=== PATIENT | female | born 1960 | race Caucasian/White ===

== ENCOUNTER 2016-11-14 09:00 | Day surgery (SDC) | payer OTHER ==
[2016-11-13 13:23] VITALS: BMI 28.1
[2016-11-14 10:12] VITALS: TEMP 97.4
[2016-11-14 11:34] VITALS: BP 119/70; PULSE 59
--- NOTE | 2016-11-15 13:05 | PATH ---
Surgical Pathology Report Patient Name: JOAQUÍN RAMIREZ [facility]. Rec. #: [id number] /Age/Gender: 1960 (Age: 56) / F Account: [id number] Location: U-ENDOSCOPY Taken: 11/14/2016 Received: 11/14/2016 Reported: 11/15/2016 Physicians: Akin Mcmahon D.O. Specimen(s) Received A: BX ANTRAL EROSION B: BX ANGULARIS BODY Clinical History Abdominal pain Gastritis Final Diagnosis A. STOMACH, ANTRUM, EROSION, BIOPSY: GASTRIC ANTRAL MUCOSA WITH ACTIVE MODERATE TO MARKED CHRONIC GASTRITIS WITH FOCAL INTESTINAL METAPLASIA AND REACTIVE GASTROPATHY WITH FOCAL SURFACE EROSION. NEGATIVE FOR DYSPLASIA. IMMUNOSTAIN FOR H. PYLORI IS POSITIVE FOR ORGANISMS (MANY ORGANISMS). B. STOMACH, ANGULARIS AND BODY, BIOPSY: GASTRIC OXYNTIC AND FOCALLY ANTRAL MUCOSA WITH FOCALLY ACTIVE MODERATE CHRONIC GASTRITIS. IMMUNOSTAIN FOR H. PYLORI IS POSITIVE FOR ORGANISMS (MANY ORGANISMS). Electronically Signed Froy Braxton M.D. Gross Description A. Received in formalin, labeled "biopsy antral erosion" are 2 veloz, irregular portions of soft tissue averaging 0.3 cm in greatest dimension. The specimens are submitted in toto in one cassette. B. Received in formalin, labeled "angularis and body" are 3 veloz, irregular portions of soft tissue ranging from 0.2-0.4 cm in greatest dimension. The specimens are submitted in toto in one cassette. 11/14/201611/14/2016
== END 2016-11-14 11:30 | disposition home or self-care (01) ==
LOC: JASU-ENDO 09:00
PROVIDERS: ATTEND Internal Medicine Gastroenterology
PROC: 0DB68ZX Excision of Stomach, Via Natural or Artificial Opening Endoscopic, Diagnostic (ICD-10-PCS; principal; 2016-11-14 10:00)
DX: K29.70 Gastritis, unspecified, without bleeding (principal)
CPT/HCPCS: 88305-TC; 88342-TC

== ENCOUNTER 2016-11-21 08:09 | Day surgery (SDC) | payer OTHER ==
[2016-11-21] MEDS ORDERED: LIDOCAINE HCL/PF 2% SDV 5ML VIAL ONE (09:42)
[2016-11-21] MEDS ORDERED: PROPOFOL 20 ML ONE ×2 (09:42)
[2016-11-21 10:13] VITALS: TEMP 97.5
[2016-11-21] MEDS ORDERED: METOCLOPRAMIDE HCL INJECTION 10 MG/2 ML VIAL ONE (10:22)
[2016-11-21 11:22] VITALS: BP 106/70; PULSE 62
--- NOTE | 2016-11-22 12:36 | PATH ---
Surgical Pathology Report Patient Name: JOAQUÍN RAMIREZ [facility]. Rec. #: [id number] /Age/Gender: 1960 (Age: 56) / F Account: [id number] Location: [facility]-ENDOSCOPY Taken: 11/21/2016 Received: 11/21/2016 Reported: 11/22/2016 Physicians: Akin Mcmahon D.O. Specimen(s) Received A: POLYP RIGHT COLON B: BX POLYP RIGHT COLON C: BX POLYP TRANSVERSE D: BX POLYP RECTUM Clinical History Screening Colon polyps Final Diagnosis A. COLON, RIGHT, POLYP, POLYPECTOMY: HYPERPLASTIC-TYPE POLYP WITH FEATURES OF SESSILE SERRATED ADENOMA. B. COLON, RIGHT, POLYP, BIOPSY: TUBULAR ADENOMA. C. COLON, TRANSVERSE, POLYP, BIOPSY: FRAGMENTS OF TUBULAR ADENOMA. D. RECTUM, POLYP, BIOPSY: HYPERPLASTIC POLYP. Electronically Signed Froy Braxton M.D. Gross Description A. Received in formalin, labeled "polyp right colon" is a veloz, polypoid portion of soft tissue measuring 0.5 cm in greatest dimension. The specimen is submitted in toto in one cassette. B. Received in formalin, labeled "#2 polyp right colon" is a veloz, polypoid portion of soft tissue measuring 0.3 cm in greatest dimension. The specimen is submitted in toto in one cassette. C. Received in formalin, labeled "biopsy polyp transverse" are 2 veloz, irregular portions of soft tissue averaging 0.2 cm in greatest dimension. The specimens are submitted in toto in one cassette. D. Received in formalin, labeled "biopsy polyp rectum" is a veloz, irregular portion of soft tissue measuring 0.3 cm in greatest dimension. The specimen is submitted in toto in one cassette. DL/11/21/2016 saudi/11/21/2016
== END 2016-11-21 11:36 | disposition home or self-care (01) ==
LOC: JASU-ENDO 08:09
PROVIDERS: ATTEND Internal Medicine Gastroenterology
PROC: 0DBL8ZX Excision of Transverse Colon, Via Natural or Artificial Opening Endoscopic, Diagnostic (ICD-10-PCS; 2016-11-21)
PROC: 0DBF8ZX Excision of Right Large Intestine, Via Natural or Artificial Opening Endoscopic, Diagnostic (ICD-10-PCS; 2016-11-21)
PROC: 0DBP8ZX Excision of Rectum, Via Natural or Artificial Opening Endoscopic, Diagnostic (ICD-10-PCS; principal; 2016-11-21 09:00)
DX: Z12.11 Encounter for screening for malignant neoplasm of colon (principal); D12.3 Benign neoplasm of transverse colon; K63.5 Polyp of colon; K62.1 Rectal polyp; K64.8 Other hemorrhoids; K63.89 Other specified diseases of intestine
CPT/HCPCS: 88305-TC

== ENCOUNTER 2018-10-12 20:36 | Inpatient (IN) | payer OTHER ==
[2018-10-12 22:32] LABS: BASO % 0.3 % (0-2.0); EOS % 0.5 % (0-4.5); HEMATOCRIT 42.2 % (32.4-45.2); LYMPH % 13.2 % (8-40); MCH 29.8 pg (25.7-33.7); MCHC 33.2 g/dl (32.0-36.0); MEAN CELL VOLUME 89.6 fl (80-96); MEAN PLT VOLUME 11.5 fl (7.5-11.1); MONO % 6.4 % (3.8-10.2); NEUT % 79.6 % (42.8-82.8); PLATELET COUNT 163 K/MM3 (134-434); RBC 4.71 M/mm3 (3.60-5.2); RDW 13.9 % (11.6-15.6)
[2018-10-12] MEDS ORDERED: ONDANSETRON 4 MG/2 ML VIAL IVPUSH ONE (22:37)
[2018-10-12 22:58] LABS: ALBUMIN 4.4 g/dl (3.4-5.0); ALK PHOS 88 U/L (45-117); ANION GAP 8 MMOL/L (8-16); BILIRUBIN,TOTAL 0.7 mg/dL (0.2-1); BLOOD UREA NITROGEN 15 mg/dL (7-18); CALCIUM 9.4 mg/dL (8.5-10.1); CHLORIDE 103 mmol/L (98-107); CO2 27 mmol/L (21-32); CREATININE 0.7 mg/dL (0.55-1.3); GLUCOSE,RANDOM 117 mg/dL (74-106); POTASSIUM 3.9 mmol/L (3.5-5.1); SGOT/AST 127 U/L (15-37); SGPT/ALT 105 U/L (13-61); SODIUM 138 mmol/L (136-145); TOT PROT 8.1 g/dl (6.4-8.2)
[2018-10-12 23:00] LABS: INR 0.96 (0.83-1.09); PROTHROMBIN TIME (PATIENT) 11.3 SEC (9.7-13.0)
[2018-10-12 23:02] LABS: ACTIVATED PTT 31.8 SECONDS (25.2-36.5)
[2018-10-12] MEDS ORDERED: FAMOTIDINE 20 MG/50 ML IVPB 20 MG/50 ML MG IVPB ONE ×2 (23:17→23:21)
[2018-10-12] MEDS ORDERED: SODIUM CHLORIDE 1,000 ML IV STA (23:18)
[2018-10-12] MEDS ORDERED: ONDANSETRON 4 MG/2 ML VIAL ONE (23:20)
[2018-10-12 23:47] LABS: LIPASE 213 U/L (73-393)
[2018-10-13] MEDS ORDERED: ACETAMINOPHEN 1000 MG/100 ML VIAL (NON FORMULARY) IVPB ONE (00:35)
[2018-10-13] MEDS ORDERED: ACETAMINOPHEN INJECTION 100 ML IVPB ONE (00:40)
--- NOTE | 2018-10-13 01:12 | PDOC ---
Attending Attestation - HPI HPI: 10/13/18 01:18 The patient is a 58 year old female, with a significant past medical history of gallstones, who presents to the emergency department with, RUQ abdominal pain with associated nausea and vomiting. She denies recent fevers, chills, headache or dizziness. She denies recent diarrhea or constipation. She denies recent dysuria, frequency, urgency or hematuria. She denies recent chest pain or shortness of breath. Allergies: NKDA Primary Care Physician: Dr. Binh Jama <Nidia Bobby - Last Filed: 10/13/18 01:18> - Resident Resident Name: Amari Armenta - ED Attending Attestation I have performed the following: I have examined & evaluated the patient, The case was reviewed & discussed with the resident, I agree w/resident's findings & plan, Exceptions are as noted - Physicial Exam PE: 10/13/18 01:35 wnwd 58 y female p/w epigastric pain and nausea head ncat neck supple lungs cta b/l cvs [id number] abd +++epigastric tenderness no cva tenderness skin warm and dry neuro axox3,ambulatory psych appropraite - Medical Decision Making 10/13/18 01:39 labs reviewed , LFTs elevated imp cholecystitis/pt admitted 10/13/18 01:43 <Rosamaria Flores - Last Filed: 10/13/18 01:43> Attestations - Attestations 10/13/18 01:18 Documentation prepared by Nidia Bobby, acting as medical sonographer for Rosamaria Flores MD. <Nidia Bobby - Last Filed: 10/13/18 01:18>
--- NOTE | 2018-10-13 01:22 | PDOC ---
History of Present Illness - General Chief Complaint: Pain, Acute Stated Complaint: VOMITING STOMACH PAIN Time Seen by Provider: 10/12/18 21:53 History Source: Patient Exam Limitations: No Limitations - History of Present Illness Initial Comments: 10/13/18 01:13 58 yo female pmh of cholelithiasis presents to the ED with 3 weeks of worsening epigastric and right upper quadrant pain with new NB/NB vomiting today. Abdominal pain has progressively worsened with new N/V today (4 episodes). Pain described as sharp, non radiating, not related to food. Pt has known gall stones with recent imaging done but no surgery f/u. Denies F/C, back pain, CP, SOB Past History - Past Medical History Allergies/Adverse Reactions: Allergies Allergy/AdvReac Type Severity Reaction Status Date / Time No Known Allergies Allergy Verified 10/12/18 20:57 Home Medications: Ambulatory Orders NK [No Known Home Medication] 10/13/18 Anemia: No Asthma: No Cancer: No Cardiac Disorders: No CVA: No COPD: No CHF: No Dementia: No Diabetes: No GI Disorders: Yes (CONSTIPATION, Gallstones) Disorders: No HTN: No Hypercholesterolemia: No Liver Disease: No Seizures: No Thyroid Disease: No - Surgical History Abdominal Surgery: No Appendectomy: No Cardiac Surgery: No Cholecystectomy: No Lung Surgery: No Neurologic Surgery: No Orthopedic Surgery: Yes (RIGHT KNEE ARTHROSCOPY) - Immunization History Immunization Up to Date: Yes - Suicide/Smoking/Psychosocial Hx Smoking History: Never smoked Have you smoked in the past 12 months: No Number of Cigarettes Smoked Daily: 4 Information on smoking cessation initiated: No 'Breaking Loose' booklet given: 11/21/16 Hx Alcohol Use: No Drug/Substance Use Hx: No Substance Use Type: None Review of Systems - Review of Systems Constitutional: No: Chills, Fever Respiratory: No: Shortness of Breath Cardiac (ROS): No: Chest Pain ABD/GI: Yes: Nausea, Vomiting. No: Constipated, Diarrhea : No: Burning, Dysuria, Frequency, Flank Pain Musculoskeletal: No: Back Pain Integumentary: No: Change in Color Neurological: No: Headache, Numbness, Weakness *Physical Exam - Vital Signs Last Vital Signs Temp Pulse Resp BP Pulse Ox 97.4 F L 66 16 106/70 100 10/12/18 20:55 10/12/18 20:55 10/12/18 20:55 10/12/18 20:55 10/12/18 20:55 - Physical Exam General Appearance: Yes: Nourished, Appropriately Dressed, Mild Distress (pt appears to be uncomfortable sitting in bed) HEENT: positive: EOMI Neck: positive: Supple Respiratory/Chest: positive: Lungs Clear, Normal Breath Sounds. negative: Accessory Muscle Use, Rapid RR, Crackles, Wheezing Cardiovascular: positive: Regular Rhythm, Regular Rate, S1, S2. negative: Edema , JVD, Murmur Vascular Pulses: Dorsalis-Pedis (R): 4+, Doralis-Pedis (L): 4+ Gastrointestinal/Abdominal: positive: Flat, Soft, Tenderness (RUQ and epigastric , + murphys). negative: Pulsatile Mass, Distended, Guarding, Rebound Musculoskeletal: negative: CVA Tenderness Integumentary: positive: Normal Color, Dry, Warm. negative: Jaundice Neurologic: positive: Fully Oriented, Alert, Normal Mood/Affect, Normal Response Moderate Sedation - Procedure Monitoring Vital Signs: Procedure Monitoring Vital Signs Temperature 97.4 F L 10/12/18 20:55 Pulse Rate 66 10/12/18 20:55 Respiratory Rate 16 10/12/18 20:55 Blood Pressure 106/70 10/12/18 20:55 O2 Sat by Pulse Oximetry (%) 100 10/12/18 20:55 ED Treatment Course - LABORATORY CBC & Chemistry Diagram: 10/14/18 06:30 10/14/18 06:30 - ADDITIONAL ORDERS Additional order review: Laboratory Results 10/12/18 10/12/18 10/12/18 22:25 22:20 22:20 PT with INR INR PTT (Actin FS) Sodium 138 Potassium 3.9 Chloride 103 Carbon Dioxide 27 Anion Gap 8 BUN 15 Creatinine 0.7 Creat Clearance w eGFR > 60 Random Glucose 117 H Calcium 9.4 Total Bilirubin 0.7 AST 127 H ALT 105 H Alkaline Phosphatase 88 Creatine Kinase 149 Troponin I < 0.02 Total Protein 8.1 Albumin 4.4 Lipase 213 Blood Type Cancelled Cancelled Antibody Screen Cancelled Cancelled 10/12/18 22:20 PT with INR 11.30 INR 0.96 PTT (Actin FS) 31.8 Sodium Potassium Chloride Carbon Dioxide Anion Gap BUN Creatinine Creat Clearance w eGFR Random Glucose Calcium Total Bilirubin AST ALT Alkaline Phosphatase Creatine Kinase Troponin I Total Protein Albumin Lipase Blood Type Antibody Screen 10/12/18 22:20 RBC 4.71 MCV 89.6 MCHC 33.2 RDW 13.9 MPV 11.5 H Neutrophils % 79.6 D Lymphocytes % 13.2 D Monocytes % 6.4 Eosinophils % 0.5 Basophils % 0.3 - RADIOLOGY Radiology Studies Ordered: Category Date Time Status ABDOMEN US -LIMITED [US] Stat Ultrasound 10/12/18 22:03 Completed - Medications Given in the ED: ED Medications Discontinued Medications Generic Name Dose Route Start Last Admin Trade Name Holly PRN Reason Stop Dose Admin Acetaminophen 1,000 mg 10/13/18 00:35 10/13/18 00:49 Ofirmev Injection - IVPB 10/13/18 00:36 1,000 mg ONCE ONE Administration Famotidine/Sodium Chloride 20 mg in 50 mls @ 100 mls/hr 10/12/18 23:17 23:35 Pepcid 20 Mg Premixed Ivpb - IVPB 10/12/18 23:46 100 mls/hr ONCE ONE Administration Sodium Chloride 1,000 mls @ 1,000 mls/hr 10/12/18 23:18 10/12/18 23:30 Normal Saline - IV 10/13/18 00:17 1,000 mls/hr ASDIR STA Administration Ondansetron HCl 4 mg 10/12/18 22:37 10/12/18 23:30 Zofran Injection IVPUSH 10/12/18 22:38 4 mg ONCE ONE Administration Medical Decision Making - Medical Decision Making 10/13/18 05:38 58 yo female pmh of known gall stones presents to the ED with 3 weeks of worsening RUQ abdominal pain and NB/NB vomiting today. Pt has known gall stones but no surgery assessment Vitals elevated HR otherwise WNL (temp normal) IV tylenol given with improvement of pain and vital signs DDX INLT: cholecysitis, cholangitis, pancreatitis/pancreatic ca, ulcer, nephrolithiasis/pylo, hepatitis/cirrhosis CBC shows leukocytosis CMP shows elevated LFTs RUQ US shows gall stones with gall bladder wall thickening and potential cholecystitis. Discussed all results with pt along with likely diagnosis of cholecystisis causing her constant pain. Pt would rather be admitted to have gall bladder removed rather than have it removed electively due to unbearable pain and new vomiting Dr. Fernando surgery consult placed Discussed case with hospitalist team, agree to admit pt *DC/Admit/Observation/Transfer Diagnosis at time of Disposition: Cholelithiases - Discharge Dispostion Condition at time of disposition: Improved Decision to Admit order: Yes - Referrals - Patient Instructions - Post Discharge Activity
--- NOTE | 2018-10-13 01:26 | PN ---
Teaching Attending Note Name of Resident: Stephan Ham ATTENDING PHYSICIAN STATEMENT I saw and evaluated the patient. I reviewed the resident's note and discussed the case with the resident. I agree with the resident's findings and plan as documented. SUBJECTIVE: Seen and examined; please refer to resident note for further historical information. Briefly, this is a 58 y/o female presenting to the ER with a CC of abdominal pain; she has a history of gallstones and was seen in [address] Mixon when she was at [facility]. Has had several episodes of this over the past year. Per his consult at that time she had atypical presentation of GB dz and recommended OP EGD +/- colonoscopy and OP elective cholecystectomy as well as a low fat diet. She is afebrile but does have a white count today in the ER; she is found to have borderline GB wall thickening on US but no wall dilation. She is agreeable to surgical consultation. Will place on observation on Med Surg floor and obtain HIDA scan and consult sgy. OBJECTIVE: VS, labs, imaging reviewed NAD, AAO, resting comfortably in bed NC AT EOMI PERRLA RRR s1/2 no mgr Lungs CTAB, w/ sym exp Slightly tender with no distention and +BS CN2-12 wnl, no fnd Normal mood, appropriate behavior US shows cholelithiasis with distension and borderline wall thickness; notes that early cholecystitis may not be visible on US and stated that we can get FU imaging as clinically indicated. Diffuse hepatic steatosis, no biliary tract dilation. Labs with normal bili and lipase but slight transaminitis ASSESSMENT AND PLAN: Patient presents with abdominal pain; she has known gallstones and was supposed to get OP stanley 3 yrs ago but was lost to FU. She presents today with potential early cholecystitis with some transaminitis. 1) Potential Cholecystitis -Empiric abx with levaquin and flagyl -NPO, LR@100cc/hr, pain and nausea control -Consult Dr. Mixon; appreciate expert opinion -Further interventions per surgical team; HIDA pending. 2) Transaminitis -AST/ALT elevation with normal lipase, bili, alk phos. Likely related to #1; checking ggt, trending cmp, consider hepatitis C screening Ab as she fits in the indicated age range. 3) Hepatic Steatosis -On us; check lipid panel and monitor CMP. Consider HCV Ab screen 4) Hx Renal stones -Noted on prior imaging; appears to have passed FENA -LR@100 -PRN replete -NPO -As tolerated Full Code
[2018-10-13] MEDS ORDERED: ONDANSETRON 4 MG/2 ML VIAL IVPB PRN (01:36)
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
[2018-10-13] MEDS ORDERED: SODIUM CHLORIDE 1,000 ML IV SCH (01:45)
[2018-10-13] MEDS: LACTATED RINGERS SOLUTION 1,000 ML/1,000 ML INFUS.BAG IV SCH ×2 (03:05→08:14)
[2018-10-13] MEDS ORDERED: HEPARIN NA (PORCINE) 5,000 UNITS/ML 1ML VIAL SQ SCH (06:00)
[2018-10-13 07:29] VITALS: BMI 26.7
[2018-10-13 08:47] LABS: BASO % 0.6 % (0-2.0); EOS % 0.8 % (0-4.5); HEMATOCRIT 35.4 % (32.4-45.2); HEMOGLOBIN 11.8 GM/dL (10.7-15.3); LYMPH % 31.9 % (8-40); MCH 29.9 pg (25.7-33.7); MCHC 33.3 g/dl (32.0-36.0); MEAN CELL VOLUME 89.7 fl (80-96); MEAN PLT VOLUME 12.2 fl (7.5-11.1); MONO % 9.8 % (3.8-10.2); NEUT % 56.9 % (42.8-82.8); PLATELET COUNT 142 K/MM3 (134-434); RBC 3.94 M/mm3 (3.60-5.2); RDW 14.1 % (11.6-15.6); WHITE BLOOD COUNT 4.6 K/mm3 (4.0-10.0)
[2018-10-13 09:44] LABS: ALBUMIN 3.4 g/dl (3.4-5.0); ALK PHOS 96 U/L (45-117); AMYLASE 41 U/L (25-115); ANION GAP 4 MMOL/L (8-16); BLOOD UREA NITROGEN 9 mg/dL (7-18); CALCIUM 8.8 mg/dL (8.5-10.1); CHLORIDE 110 mmol/L (98-107); CO2 28 mmol/L (21-32); CREATININE 0.6 mg/dL (0.55-1.3); GLUCOSE,RANDOM 92 mg/dL (74-106); LIPASE 142 U/L (73-393); PHOSPHOROUS 2.9 mg/dL (2.5-4.9); POTASSIUM 4.5 mmol/L (3.5-5.1); SGOT/AST 1231 U/L (15-37); SGPT/ALT 997 U/L (13-61); SODIUM 143 mmol/L (136-145); TOT PROT 6.2 g/dl (6.4-8.2)
[2018-10-13] MEDS: ACETAMINOPHEN 1000 MG/100 ML VIAL (NON FORMULARY) IVPB PRN ×2 (10:03→16:03)
--- NOTE | 2018-10-13 10:46 | CON.GI ---
Consult Consult Specialty:: GI consult dictated - await mrcp c/w current management - Past Medical History Renal/: Yes: Renal Calculi (right non-obstructing) Rheumatology: Yes: Other (right shoulder pain, left flank pain) - Past Surgical History Past Surgical History: Yes: (x 3) - Alcohol/Substance Use Hx Alcohol Use: No - Smoking History Smoking history: Never smoked Have you smoked in the past 12 months: No Aproximately how many cigarettes per day: 4 Home Medications - Allergies Allergies/Adverse Reactions: Allergies Allergy/AdvReac Type Severity Reaction Status Date / Time No Known Allergies Allergy Verified 10/12/18 20:57 - Home Medications Home Medications: Ambulatory Orders NK [No Known Home Medication] 10/13/18 Physical Exam-GI Vital Signs: Vital Signs Temperature 98.4 F 10/13/18 09:00 Pulse Rate 56 L 10/13/18 09:00 Respiratory Rate 18 10/13/18 09:00 Blood Pressure 114/56 L 10/13/18 09:00 O2 Sat by Pulse Oximetry (%) 97 10/13/18 06:57 Labs: CBC, BMP 10/13/18 08:00 10/13/18 08:00 INR, PTT INR 0.96 (0.83-1.09) 10/12/18 22:20 Problem List - Problems (1) Cholelithiasis Code(s): K80.20 - CALCULUS OF GALLBLADDER W/O CHOLECYSTITIS W/O OBSTRUCTION
--- NOTE | 2018-10-13 13:31 | EKG ---
Test Reason : Blood Pressure : / mmHG Vent. Rate : 054 BPM Atrial Rate : 054 BPM P-R Int : 194 ms QRS Dur : 082 ms QT Int : 438 ms P-R-T Axes : 042 025 034 degrees QTc Int : 415 ms SINUS BRADYCARDIA LOW VOLTAGE QRS NONSPECIFIC T WAVE ABNORMALITY ABNORMAL ECG WHEN COMPARED WITH ECG OF 29-JUN-2016 20:16, NO SIGNIFICANT CHANGE WAS FOUND Confirmed by MD PRICILA, KATHY ([id number]) on 10/13/2018 1:31:02 PM Referred By: Confirmed By:KATHY MCNULTY MD
--- NOTE | 2018-10-13 13:44 | PN ---
Teaching Attending Note Name of Resident: Jayden Viveros ATTENDING PHYSICIAN STATEMENT I saw and evaluated the patient. I reviewed the resident's note and discussed the case with the resident. I agree with the resident's findings and plan as documented. SUBJECTIVE: No abd pain, no ZUNIGA , no fever or chills , has heart burn. report a diagnosis of cholelithiasis but never followed denies exertional cp or SOB. has no cardiac history OBJECTIVE: NAD awake, alert, oriented. dry MM Lungs: CTAB Ext : no edema or erythema Abd: soft, NT, ND , NL BS . Neg Hammond's ASSESSMENT AND PLAN: 58 y/o lady with h/o cholelithiasis, C section, and R shoulder sx who presented with Abd pain, and was found ot have Transaminitis 1- Transaminitis: need to r/o impacted CBD stone due to the abrupt rise in LFTs. - US reviewed. Gall bladder distention and borderline wall thickening. - dc HIDA - order MRCP - change levaquin to ceftriaxone. cont flagyl - cont IVF - NPO for now - might need ERCP. if MRCP showes CBD stone , then will get GI on board - DC DVT px in case ERCP is needed - d/w Dr. Fernando 2- GERD sx: add PPI SCDs
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
[2018-10-13] MEDS ORDERED: DEXTROSE 5%-WATER - 50 ML IVPB ONE (18:26)
[2018-10-13] MEDS ORDERED: PIPERACILLIN/TAZOBACTAM 3.375 GM VIAL IVPB ONE (18:26)
--- NOTE | 2018-10-13 18:28 | PN ---
Physical Exam: SUBJECTIVE: Patient seen and examined at bedside. Denies any abdominal pain. OBJECTIVE: Vital Signs Period Temp Pulse Resp BP Sys/Jones Pulse Ox Last 24 Hr 97.4 F-98.4 F 52-66 16-20 102-116/52-70 96-100 GENERAL: AAOx3 NAD HEAD: AT/NC EYES: EOMI Sclera clear no scleral icterus appreciated ENT: MMM NECK: Trachea midline, full range of motion, supple. LUNGS: CTAB HEART: RRR Nl s1s2 ABDOMEN: [place] sign negative. Nondistended nontender EXTREMITIES: No CCE PSYCH: Normal mood, normal affect. SKIN: Skin moist, no jaundice appreciated Laboratory Results - last 24 hr 10/12/18 10/12/18 10/12/18 22:20 22:20 22:20 WBC 13.0 H RBC 4.71 Hgb 14.0 Hct 42.2 MCV 89.6 MCH 29.8 MCHC 33.2 RDW 13.9 Plt Count 163 MPV 11.5 H Absolute Neuts (auto) 10.3 H Neutrophils % 79.6 D Lymphocytes % 13.2 D Monocytes % 6.4 Eosinophils % 0.5 Basophils % 0.3 Nucleated RBC % 0 ESR PT with INR 11.30 INR 0.96 PTT (Actin FS) 31.8 Sodium 138 Potassium 3.9 Chloride 103 Carbon Dioxide 27 Anion Gap 8 BUN 15 Creatinine 0.7 Creat Clearance w eGFR > 60 Random Glucose 117 H Calcium 9.4 Phosphorus Magnesium Total Bilirubin 0.7 GGT AST 127 H ALT 105 H Alkaline Phosphatase 88 Creatine Kinase 149 Troponin I < 0.02 Total Protein 8.1 Albumin 4.4 Total Amylase Lipase 213 Blood Type Antibody Screen 10/12/18 10/12/18 10/13/18 22:20 22:25 02:14 WBC RBC Hgb Hct MCV MCH MCHC RDW Plt Count MPV Absolute Neuts (auto) Neutrophils % Lymphocytes % Monocytes % Eosinophils % Basophils % Nucleated RBC % ESR 7 PT with INR INR PTT (Actin FS) Sodium Potassium Chloride Carbon Dioxide Anion Gap BUN Creatinine Creat Clearance w eGFR Random Glucose Calcium Phosphorus Magnesium Total Bilirubin GGT AST ALT Alkaline Phosphatase Creatine Kinase Troponin I Total Protein Albumin Total Amylase Lipase Blood Type Cancelled Cancelled Antibody Screen Cancelled Cancelled 10/13/18 10/13/18 10/13/18 02:14 08:00 08:00 WBC 4.6 RBC 3.94 Hgb 11.8 Hct 35.4 D MCV 89.7 MCH 29.9 MCHC 33.3 RDW 14.1 Plt Count 142 MPV 12.2 H Absolute Neuts (auto) 2.6 Neutrophils % 56.9 D Lymphocytes % 31.9 D Monocytes % 9.8 Eosinophils % 0.8 Basophils % 0.6 Nucleated RBC % 0 ESR PT with INR INR PTT (Actin FS) Sodium Potassium Chloride Carbon Dioxide Anion Gap BUN Creatinine Creat Clearance w eGFR Random Glucose Calcium Phosphorus Magnesium Total Bilirubin GGT 275 H AST ALT Alkaline Phosphatase Creatine Kinase Troponin I Total Protein Albumin Total Amylase Lipase Blood Type O POSITIVE Antibody Screen Negative 10/13/18 10/13/18 08:00 10:45 WBC RBC Hgb Hct MCV MCH MCHC RDW Plt Count MPV Absolute Neuts (auto) Neutrophils % Lymphocytes % Monocytes % Eosinophils % Basophils % Nucleated RBC % ESR PT with INR INR PTT (Actin FS) Sodium 143 Potassium 4.5 Chloride 110 H Carbon Dioxide 28 Anion Gap 4 L BUN 9 Creatinine 0.6 Creat Clearance w eGFR > 60 Random Glucose 92 Calcium 8.8 Phosphorus 2.9 Magnesium 2.0 Total Bilirubin 1.0 GGT AST 1231 H ALT 997 H Alkaline Phosphatase 96 Creatine Kinase Troponin I < 0.02 Total Protein 6.2 L Albumin 3.4 Total Amylase 41 Lipase 142 Blood Type O POSITIVE Antibody Screen Active Medications Generic Name Dose Route Start Last Admin Trade Name Freq PRN Reason Stop Dose Admin Acetaminophen 1,000 mg 10/13/18 02:11 10/13/18 16:03 Ofirmev Injection - IVPB 1,000 mg Q6H PRN Administration PAIN LEVEL 6-10 Lactated Ringer's 1,000 ml in 1,000 mls @ 100 mls/hr 10/13/18 02:15 10/13/18 08:14 Lactated Ringers Solution IV 100 mls/hr ASDIR VALORIE Administration Piperacillin Sod/Tazobactam 50 mls @ 100 mls/hr 10/13/18 18:30 Sod 3.375 gm/ Dextrose IVPB 10/13/18 18:59 ONCE ONE Protocol Ondansetron HCl 4 mg 10/13/18 01:36 Zofran Injection IVPB Q6H PRN NAUSEA AND/OR VOMITING ASSESSMENT/PLAN: Pt is a 58 year old female with no pMHx who presented with a one day h/o epigastric abdominal pain. # Cholelithisis R.O Acute cholecystitis - multiple episode through out the year worsen with fatty food -US abdomen with cholelithiasis. MRCP---> Cholelithiasis but not choledocholithiasis or pancreaticobilliary duct dilation. -Levofloxacin and flagyl -Surgery on board- Dr Fernando -NPO pending ERCP tomorrow -Type and screen . PTT, INT/PT -D5w w/ LR @ 100. Discussed with Surgery Dr Fernando -Tylenol IV for pain -Zofran for Nausea # Transaminitis -AST/ALT 127-1231. 105--> 997 respectively. wbc down to normal, alk phos is normal. Not clearly an obstructive pattern. May be 2/2 gallbladder injury -monitor repeat lab in am # Hepatic Steatosis -noted on US On us; check lipid panel and monitor CMP. -HCV Ab screen as out pt # FEN D5 w/ LR @ 100cc/hr # DVT ppx SCD's # Dispo Med-Surg Visit type - Emergency Visit Emergency Visit: Yes ED Registration Date: 10/13/18 Care time: The patient presented to the Emergency Department on the above date and was hospitalized for further evaluation of their emergent condition. - New Patient This patient is new to me today: Yes Date on this admission: 10/13/18 - Critical Care Critical Care patient: No - Discharge Referral Referred to [facility] No
[2018-10-13] MEDS ORDERED: PIPERACILLIN/TAZOB 3.375 GM 3.375 GM in DEXTROSE 5%-WATER - 50 ML IVPB ONE (18:30)
[2018-10-13] MEDS ORDERED: DEXTROSE 5%-LACTATED RINGERS 1,000 ML IV SCH ×2 (19:00)
[2018-10-13] MEDS ORDERED: OXYMETAZOLINE 0.05% NASAL SOLUTION 15 ML BOTTLE NS ONE (19:00)
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
[2018-10-14] MEDS ORDERED: BUPIVACAINE HCL/PF (5 MG/ML) 30 ML VIAL IJ ONE
[2018-10-14] MEDS ORDERED: DEXTROSE 5%-WATER - 50 ML IVPB ONE ×3 (00:47→18:17)
[2018-10-14] MEDS ORDERED: PIPERACILLIN/TAZOBACTAM 3.375 GM VIAL IVPB ONE ×3 (00:47→18:17)
[2018-10-14] MEDS: PIPERACILLIN/TAZOB 3.375 GM 3.375 GM in DEXTROSE 5%-WATER - 50 ML IVPB SCH ×3 (01:46→18:19)
[2018-10-14 07:35] LABS: EOS % 3.3 % (0-4.5); HEMATOCRIT 38.1 % (32.4-45.2); HEMOGLOBIN 12.8 GM/dL (10.7-15.3); LYMPH % 34.2 % (8-40); MCH 30.4 pg (25.7-33.7); MCHC 33.7 g/dl (32.0-36.0); MEAN CELL VOLUME 90.2 fl (80-96); MEAN PLT VOLUME 11.9 fl (7.5-11.1); MONO % 12.2 % (3.8-10.2); NEUT % 49.3 % (42.8-82.8); PLATELET COUNT 146 K/MM3 (134-434); RBC 4.22 M/mm3 (3.60-5.2); RDW 13.8 % (11.6-15.6); WHITE BLOOD COUNT 3.8 K/mm3 (4.0-10.0)
[2018-10-14 07:59] LABS: ALBUMIN 3.5 g/dl (3.4-5.0); ALK PHOS 100 U/L (45-117); ANION GAP 4 MMOL/L (8-16); BILIRUBIN,TOTAL 0.5 mg/dL (0.2-1); BLOOD UREA NITROGEN 7 mg/dL (7-18); CALCIUM 9.3 mg/dL (8.5-10.1); CHLORIDE 108 mmol/L (98-107); CHOLESTEROL 185 mg/dL (50-200); CO2 31 mmol/L (21-32); CREATININE 0.7 mg/dL (0.55-1.3); GLUCOSE,RANDOM 105 mg/dL (74-106); HDL CHOLESTEROL 66 mg/dL (40-60); LIPASE 111 U/L (73-393); MAGNESIUM 2.3 mg/dL (1.8-2.4); PHOSPHOROUS 3.2 mg/dL (2.5-4.9); POTASSIUM 4.2 mmol/L (3.5-5.1); SGOT/AST 290 U/L (15-37); SGPT/ALT 663 U/L (13-61); SODIUM 142 mmol/L (136-145); TOT PROT 6.5 g/dl (6.4-8.2); TRIGLYCERIDES 95 mg/dL (0-150)
--- NOTE | 2018-10-14 09:27 | PN ---
Teaching Attending Note Name of Resident: Gray Valadez ATTENDING PHYSICIAN STATEMENT I saw and evaluated the patient. I reviewed the resident's note and discussed the case with the resident. I agree with the resident's findings and plan as documented. SUBJECTIVE: Patient is going to OR today. OBJECTIVE: Vital Signs Temperature 98.2 F 10/14/18 05:59 Pulse Rate 51 L 10/14/18 05:59 Respiratory Rate 18 10/14/18 05:59 Blood Pressure 99/57 L 10/14/18 05:59 O2 Sat by Pulse Oximetry (%) 97 10/13/18 21:00 GENERAL: AAOx3 NAD HEAD: AT/NC EYES: EOMI Sclera clear no scleral icterus appreciated ENT: MMM NECK: full range of motion, supple. LUNGS: CTAB HEART: RRR Nl s1s2 ABDOMEN: soft, NT today . Nondistended nontender EXTREMITIES: No C/C/E PSYCH: Normal mood, normal affect. SKIN: Skin moist, no jaundice appreciated CBCD WBC 3.8 K/mm3 (4.0-10.0) L 10/14/18 06:30 RBC 4.22 M/mm3 (3.60-5.2) 10/14/18 06:30 Hgb 12.8 GM/dL (10.7-15.3) 10/14/18 06:30 Hct 38.1 % (32.4-45.2) 10/14/18 06:30 MCV 90.2 fl (80-96) 10/14/18 06:30 MCHC 33.7 g/dl (32.0-36.0) 10/14/18 06:30 RDW 13.8 % (11.6-15.6) 10/14/18 06:30 Plt Count 146 K/MM3 (134-434) 10/14/18 06:30 MPV 11.9 fl (7.5-11.1) H 10/14/18 06:30 CMP Sodium 142 mmol/L (136-145) 10/14/18 06:30 Potassium 4.2 mmol/L (3.5-5.1) 10/14/18 06:30 Chloride 108 mmol/L (98-107) H 10/14/18 06:30 Carbon Dioxide 31 mmol/L (21-32) 10/14/18 06:30 Anion Gap 4 MMOL/L (8-16) L 10/14/18 06:30 BUN 7 mg/dL (7-18) 10/14/18 06:30 Creatinine 0.7 mg/dL (0.55-1.3) 10/14/18 06:30 Creat Clearance w eGFR > 60 (>60) 10/14/18 06:30 Random Glucose 105 mg/dL (74-106) 10/14/18 06:30 Calcium 9.3 mg/dL (8.5-10.1) 10/14/18 06:30 Total Bilirubin 0.5 mg/dL (0.2-1) 10/14/18 06:30 AST 290 U/L (15-37) H 10/14/18 06:30 ALT 663 U/L (13-61) H 10/14/18 06:30 Alkaline Phosphatase 100 U/L (45-117) 10/14/18 06:30 Total Protein 6.5 g/dl (6.4-8.2) 10/14/18 06:30 Albumin 3.5 g/dl (3.4-5.0) 10/14/18 06:30 CARDIAC ENZYMES Creatine Kinase 149 U/L (26-192) 10/12/18 22:20 Troponin I < 0.02 ng/ml (0.00-0.05) 10/13/18 08:00 Current Medications Generic Name Dose Route Start Last Admin Trade Name Freq PRN Reason Stop Dose Admin Acetaminophen 1,000 mg 10/13/18 02:11 10/13/18 16:03 Ofirmev Injection - IVPB 1,000 mg Q6H PRN Administration PAIN LEVEL 6-10 Piperacillin Sod/Tazobactam 50 mls @ 100 mls/hr 10/14/18 02:00 10/14/18 01:46 Sod 3.375 gm/ Dextrose IVPB 100 mls/hr Q8H-IV VALORIE Administration Protocol Ondansetron HCl 4 mg 10/13/18 01:36 Zofran Injection IVPB Q6H PRN NAUSEA AND/OR VOMITING Pantoprazole Sodium 40 mg 10/14/18 10:00 Protonix Iv IVPUSH DAILY VALORIE Home Medications Medication Instructions Recorded NK [No Known Home Medication] 10/13/18 ASSESSMENT AND PLAN: Patient is a 58 y/o lady with h/o cholelithiasis, C section, and R shoulder sx who presented with Abd pain, and was found to have elevated LFts , acute cholecystitis. # Acute cholecystitis going for lap stanley. today by . On IV Zosyn continue. # acute Transaminitis:will trend # GERD sx: on PPI DVt Px; hold ac for now going to sx
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
[2018-10-14] MEDS ORDERED: CEFTRIAXONE 1 GM in DEXTROSE 5%-WATER - 50 ML IVPB SCH (10:00)
[2018-10-14] MEDS ORDERED: PANTOPRAZOLE SODIUM 40 MG VIAL IVPUSH SCH (10:00)
--- NOTE | 2018-10-14 11:15 | PN ---
Progress Note, Physician Chief Complaint: Elevated liver chemistry tests, abdominal pain History of Present Illness: Doing well since yesterday. No abdominal pain at present. Comfortable. - Current Medication List Current Medications: Active Medications Acetaminophen (Ofirmev Injection -) 1,000 mg IVPB Q6H PRN PRN Reason: PAIN LEVEL 6-10 Last Admin: 10/13/18 16:03 Dose: 1,000 mg Piperacillin Sod/Tazobactam (Sod 3.375 gm/ Dextrose) 50 mls @ 100 mls/hr IVPB Q8H-IV VALORIE; Protocol Last Admin: 10/14/18 09:54 Dose: 100 mls/hr Ondansetron HCl (Zofran Injection) 4 mg IVPB Q6H PRN PRN Reason: NAUSEA AND/OR VOMITING Pantoprazole Sodium (Protonix Iv) 40 mg IVPUSH DAILY VALORIE Last Admin: 10/14/18 09:54 Dose: 40 mg - Objective Vital Signs: Vital Signs Temperature 98.2 F 10/14/18 05:59 Pulse Rate 51 L 10/14/18 05:59 Respiratory Rate 18 10/14/18 05:59 Blood Pressure 99/57 L 10/14/18 05:59 O2 Sat by Pulse Oximetry (%) 97 10/13/18 21:00 Constitutional: Yes: Well Nourished, No Distress Eyes: No: Sclera Icterus Cardiovascular: Yes: Regular Rate and Rhythm Respiratory: Yes: CTA Bilaterally Labs: CBC, BMP 10/14/18 06:30 10/14/18 06:30 INR, PTT INR 0.96 (0.83-1.09) 10/12/18 22:20 - ....Imaging MRI: Report Reviewed (No choledochelithiasis or change to CBD, pancreatic duct) Problem List - Problems (1) Cholelithiasis Code(s): K80.20 - CALCULUS OF GALLBLADDER W/O CHOLECYSTITIS W/O OBSTRUCTION (2) Calculus of gallbladder with acute cholecystitis without obstruction Code(s): K80.00 - CALCULUS OF GALLBLADDER W ACUTE CHOLECYST W/O OBSTRUCTION Assessment/Plan With dramatic decrease in AST/ALT to 290/663 from 1231/997 yesterday, and continued normal bilirubin and alkaline phosphatase along with MRCP free of choledochelithiasis or changes to CBD or pancreatic duct, no immediate value to ERCP at this time--likely passed stone. Timing of GB surgery per surgical team. Will continue to follow with you.
--- NOTE | 2018-10-14 14:14 | PN ---
Physical Exam: SUBJECTIVE: Patient seen and examined at bedside. No acute events overnight. Denies abdominal pain. OBJECTIVE: Vital Signs Period Temp Pulse Resp BP Sys/Jones Pulse Ox Last 24 Hr 97.7 F-98.4 F 51-60 18-18 99-118/57-77 97 GENERAL: AAOx3 NAD HEAD: AT/NC EYES: EOMI Sclera clear no scleral icterus appreciated ENT: MMM NECK: Trachea midline, full range of motion, supple. LUNGS: Clear to auscultation b/l HEART: RRR Nl s1s2 ABDOMEN: [place] sign negative. Abdomen remains nondistended and nontender EXTREMITIES: No CCE PSYCH: Normal mood, normal affect. SKIN: Skin moist, no jaundice appreciated Laboratory Results - last 24 hr 10/14/18 10/14/18 10/14/18 06:30 06:30 06:30 WBC 3.8 L RBC 4.22 Hgb 12.8 Hct 38.1 MCV 90.2 MCH 30.4 MCHC 33.7 RDW 13.8 Plt Count 146 MPV 11.9 H Absolute Neuts (auto) 1.9 Neutrophils % 49.3 Lymphocytes % 34.2 Monocytes % 12.2 H Eosinophils % 3.3 D Basophils % 1.0 Nucleated RBC % 0 Sodium 142 Potassium 4.2 Chloride 108 H Carbon Dioxide 31 Anion Gap 4 L BUN 7 Creatinine 0.7 Creat Clearance w eGFR > 60 Random Glucose 105 Hemoglobin A1c % 5.9 Calcium 9.3 Phosphorus 3.2 Magnesium 2.3 Total Bilirubin 0.5 AST 290 H ALT 663 H Alkaline Phosphatase 100 Total Protein 6.5 Albumin 3.5 Triglycerides 95 Cholesterol 185 Total LDL Cholesterol 103 H HDL Cholesterol 66 H Lipase 111 Active Medications Generic Name Dose Route Start Last Admin Trade Name Freq PRN Reason Stop Dose Admin Acetaminophen 1,000 mg 10/13/18 02:11 10/13/18 16:03 Ofirmev Injection - IVPB 1,000 mg Q6H PRN Administration PAIN LEVEL 6-10 Fentanyl 25 mcg 10/14/18 14:08 Sublimaze Injection - IVPUSH [id number] PRN PAIN-PACU ORDER X 4 DOSES ONLY Piperacillin Sod/Tazobactam 50 mls @ 100 mls/hr 10/14/18 02:00 10/14/18 09:54 Sod 3.375 gm/ Dextrose IVPB 100 mls/hr Q8H-IV VALORIE Administration Protocol Ondansetron HCl 4 mg 10/13/18 01:36 Zofran Injection IVPB Q6H PRN NAUSEA AND/OR VOMITING Pantoprazole Sodium 40 mg 10/14/18 10:00 10/14/18 09:54 Protonix Iv IVPUSH 40 mg DAILY VALORIE Administration ASSESSMENT/PLAN: Pt is a 58 year old female with no pMHx who presented with a one day h/o epigastric abdominal pain. # Cholelithisis R.O Acute cholecystitis - multiple episode through out the year worsen with fatty food -US abdomen with cholelithiasis. MRCP---> Cholelithiasis but not choledocholithiasis or pancreaticobilliary duct dilation. -Zosyn 3.375 Q8H -Surgery on board- Dr Fernando -D5w w/ LR @ 100. Discussed with Surgery Dr Fernando -Tylenol IV for pain -Zofran for Nausea # Transaminitis -AST/ALT 127-1231. 105--> 997 respectively. wbc down to normal, alk phos is normal. Not clearly an obstructive pattern. May be 2/2 gallbladder injury -AST/ALT 290/663. Down from yesterday. Per Dr Karoline Brooke, continued normal bilirubin and alkaline phosphatase along with MRCP free of choledochelithiasis or changes to CBD or pancreatic duct, no immediate value to ERCP at this time-- likely passed stone. Spoke with Surgery Dr Fernando---. pt will go for cholecystectomy this afternoon # Hepatic Steatosis -noted on US On us; Triglycerides Total Cholesterol WNL. LDL 103 -HCV Ab screen as out pt # FEN D5 w/ LR @ 100cc/hr # DVT ppx SCD's # Dispo Med-Surg Visit type - Emergency Visit Emergency Visit: Yes ED Registration Date: 10/13/18 Care time: The patient presented to the Emergency Department on the above date and was hospitalized for further evaluation of their emergent condition. - New Patient This patient is new to me today: No - Critical Care Critical Care patient: No - Discharge Referral Referred to [facility] No
--- NOTE | 2018-10-14 14:45 | PN ---
Progress Note, Physician History of Present Illness: Pt with acute cholecystitis, multiple stones, MRCP negative for CBD stones. Labs trending down today. Feeling hungry with minimal pain. - Current Medication List Current Medications: Active Medications Acetaminophen (Ofirmev Injection -) 1,000 mg IVPB Q6H PRN PRN Reason: PAIN LEVEL 6-10 Last Admin: 10/13/18 16:03 Dose: 1,000 mg Fentanyl (Sublimaze Injection -) 25 mcg IVPUSH [id number] PRN PRN Reason: PAIN-PACU ORDER X 4 DOSES ONLY Stop: 10/15/18 14:07 Piperacillin Sod/Tazobactam (Sod 3.375 gm/ Dextrose) 50 mls @ 100 mls/hr IVPB Q8H-IV VALORIE; Protocol Last Admin: 10/14/18 09:54 Dose: 100 mls/hr Ondansetron HCl (Zofran Injection) 4 mg IVPB Q6H PRN PRN Reason: NAUSEA AND/OR VOMITING Pantoprazole Sodium (Protonix Iv) 40 mg IVPUSH DAILY VALORIE Last Admin: 10/14/18 09:54 Dose: 40 mg - Objective Vital Signs: Vital Signs Temperature 98.2 F 10/14/18 14:40 Pulse Rate 58 L 10/14/18 14:40 Respiratory Rate 18 10/14/18 14:40 Blood Pressure 118/77 10/14/18 14:40 O2 Sat by Pulse Oximetry (%) 97 10/13/18 21:00 Constitutional: Yes: Well Nourished, No Distress, Calm Eyes: Yes: Conjunctiva Clear, EOM Intact. No: Sclera Icterus HENT: Yes: Atraumatic, Normocephalic Gastrointestinal: Yes: Soft, Tenderness, Epigastrium (minimal). No: Tenderness , Rebound ...Rectal Exam: Yes: Deferred Extremities: No: Cool, Cyanosis Integumentary: No: Jaundice, Rash Neurological: Yes: Alert, Oriented Labs: CBC, BMP 10/14/18 06:30 10/14/18 06:30 CMP Sodium 142 mmol/L (136-145) 10/14/18 06:30 Potassium 4.2 mmol/L (3.5-5.1) 10/14/18 06:30 Chloride 108 mmol/L (98-107) H 10/14/18 06:30 Carbon Dioxide 31 mmol/L (21-32) 10/14/18 06:30 Anion Gap 4 MMOL/L (8-16) L 10/14/18 06:30 BUN 7 mg/dL (7-18) 10/14/18 06:30 Creatinine 0.7 mg/dL (0.55-1.3) 10/14/18 06:30 Creat Clearance w eGFR > 60 (>60) 10/14/18 06:30 Random Glucose 105 mg/dL (74-106) 10/14/18 06:30 Hemoglobin A1c % 5.9 % (4.2-6.3) 10/14/18 06:30 Calcium 9.3 mg/dL (8.5-10.1) 10/14/18 06:30 Phosphorus 3.2 mg/dL (2.5-4.9) 10/14/18 06:30 Magnesium 2.3 mg/dL (1.8-2.4) 10/14/18 06:30 Total Bilirubin 0.5 mg/dL (0.2-1) 10/14/18 06:30 GGT 275 U/L (5-85) H 10/13/18 02:14 AST 290 U/L (15-37) H 10/14/18 06:30 ALT 663 U/L (13-61) H 10/14/18 06:30 Alkaline Phosphatase 100 U/L (45-117) 10/14/18 06:30 Creatine Kinase 149 U/L (26-192) 10/12/18 22:20 Troponin I < 0.02 ng/ml (0.00-0.05) 10/13/18 08:00 Total Protein 6.5 g/dl (6.4-8.2) 10/14/18 06:30 Albumin 3.5 g/dl (3.4-5.0) 10/14/18 06:30 Triglycerides 95 mg/dL (0-150) 10/14/18 06:30 Cholesterol 185 mg/dL (50-200) 10/14/18 06:30 Total LDL Cholesterol 103 mg/dL (5-100) H 10/14/18 06:30 HDL Cholesterol 66 mg/dL (40-60) H 10/14/18 06:30 Total Amylase 41 U/L (25-115) 10/13/18 08:00 Lipase 111 U/L (73-393) 10/14/18 06:30 LFTs trending down Problem List - Problems (1) Calculus of gallbladder with acute cholecystitis without obstruction Assessment/Plan: no ERCP needed per GI Discussed with patient risks, benefits and alternatives of laparoscopic possible open cholecystectomy, including but not limited to bleeding, infection , injury to adjacent structures, bile leak or ductal injury, intraabdominal abscess, incisional hernia, need for further procedures, ; alternatives include antibiotics, delayed or no surgery - risks of this include recurrence of cholecystitis, cholangitis, pancreatitis, . Patient desires to proceed with operation - will take to OR for above. Informed consent signed for same. Stateless phone paraprofessional interpreter used. Will go to OR now. anticipate resuming po postop pain meds nonnarcotics first line complete antibiotics before d/c home possible d/c home tomorrow after lunch, after seen by surgery discussed with primary team Code(s): K80.00 - CALCULUS OF GALLBLADDER W ACUTE CHOLECYST W/O OBSTRUCTION (2) Epigastric pain Code(s): R10.13 - EPIGASTRIC PAIN (3) Nausea & vomiting Code(s): R11.2 - NAUSEA WITH VOMITING, UNSPECIFIED Qualifiers: Vomiting type: unspecified Vomiting Intractability: non-intractable Qualified Code(s): R11.2 - Nausea with vomiting, unspecified (4) Elevated transaminase level Assessment/Plan: trending down Code(s): R74.0 - NONSPEC ELEV OF LEVELS OF TRANSAMNS & LACTIC ACID DEHYDRGNSE
[2018-10-14] MEDS ORDERED: DEXAMETHASONE SOD PHOSPHATE 4 MG/1 ML VIAL ONE (14:48)
[2018-10-14] MEDS ORDERED: PROPOFOL 20 ML ONE (14:52)
[2018-10-14] MEDS ORDERED: ROCURONIUM BROMIDE 50 MG/5 ML VIAL ONE (14:53)
[2018-10-14] MEDS ORDERED: LIDOCAINE HCL/PF 2% SDV 5ML VIAL ONE (14:53)
[2018-10-14] MEDS ORDERED: GLYCOPYRROLATE 0.2 MG/1 ML VIAL ONE (15:58)
[2018-10-14] MEDS ORDERED: NEOSTIGMINE METHYLSULFATE 0.5 MG/ML - 10 ML MDV ONE (15:58)
[2018-10-14] MEDS ORDERED: BENZOIN TINCTURE SWABSTICK TP ONE (16:07)
--- NOTE | 2018-10-14 16:38 | OP ---
Operative Note - Note: Operative Date: 10/14/18 Pre-Operative Diagnosis: acute cholecystitis Operation: laparoscopic cholecystectomy Findings: distended, mildly edematous gallbladder, few overlying omental adhesions, critical view clearly identified, multiple stones palpated in gallbladder Post-Operative Diagnosis: Same as Pre-op Surgeon: Glenn Fernando Life Sciences Manager: Benny Pickering Anesthesiologist/DIRECTOR OF CORPORATE SPONSORSHIPS: Ronny Cavazos Anesthesia: General, Local (20ml 0.5% marcaine) Specimens Removed: gallbladder to pathology Estimated Blood Loss (mls): 5 Fluid Volume Replaced (mls): 1,000 (crystalloid) Operative Report Dictated: Yes
[2018-10-14] MEDS ORDERED: IBUPROFEN 800 MG/8 ML IJ IVPB ONE ×2 (16:55→17:00)
[2018-10-14] MEDS ORDERED: LACTATED RINGERS SOLUTION 1,000 ML/1,000 ML INFUS.BAG IV SCH (17:00)
[2018-10-14] MEDS: ACETAMINOPHEN 325 MG TABLET (FP) PO SCH ×2 (18:19→23:30)
[2018-10-14] MEDS: IBUPROFEN 600 MG TABLET (FP) PO SCH (20:39)
[2018-10-15] MEDS ORDERED: PIPERACILLIN/TAZOBACTAM 3.375 GM VIAL IVPB ONE ×2 (01:24→08:55)
[2018-10-15] MEDS ORDERED: DEXTROSE 5%-WATER - 50 ML IVPB ONE ×2 (01:24→08:55)
[2018-10-15] MEDS: PIPERACILLIN/TAZOB 3.375 GM 3.375 GM in DEXTROSE 5%-WATER - 50 ML IVPB SCH (02:39)
[2018-10-15] MEDS: IBUPROFEN 600 MG TABLET (FP) PO SCH ×4 (02:45→22:26)
[2018-10-15 04:13] LABS: HEP.C VIRUS AB <0.1 s/co ratio (0.0-0.9)
[2018-10-15] MEDS: ACETAMINOPHEN 325 MG TABLET (FP) PO SCH ×3 (05:16→18:20)
[2018-10-15 07:55] LABS: HEMATOCRIT 37.7 % (32.4-45.2); HEMOGLOBIN 12.4 GM/dL (10.7-15.3); MCH 29.5 pg (25.7-33.7); MCHC 32.8 g/dl (32.0-36.0); MEAN CELL VOLUME 89.7 fl (80-96); MEAN PLT VOLUME 12.2 fl (7.5-11.1); PLATELET COUNT 151 K/MM3 (134-434); RDW 13.8 % (11.6-15.6); WHITE BLOOD COUNT 9.1 K/mm3 (4.0-10.0)
[2018-10-15 08:16] LABS: ALBUMIN 3.4 g/dl (3.4-5.0); ALK PHOS 91 U/L (45-117); ANION GAP 6 MMOL/L (8-16); BILIRUBIN,DIRECT 0.2 mg/dL (0.0-0.2); BILIRUBIN,TOTAL 0.5 mg/dL (0.2-1); BLOOD UREA NITROGEN 7 mg/dL (7-18); CALCIUM 9.9 mg/dL (8.5-10.1); CHLORIDE 106 mmol/L (98-107); CO2 29 mmol/L (21-32); CREATININE 0.9 mg/dL (0.55-1.3); GLUCOSE,RANDOM 132 mg/dL (74-106); POTASSIUM 4.8 mmol/L (3.5-5.1); SGOT/AST 157 U/L (15-37); SGPT/ALT 496 U/L (13-61); SODIUM 142 mmol/L (136-145); TOT PROT 6.5 g/dl (6.4-8.2)
[2018-10-15] MEDS ORDERED: ONDANSETRON 4 MG/2 ML VIAL IVPB PRN (08:45)
[2018-10-15] MEDS ORDERED: LACTATED RINGERS SOLUTION 1,000 ML/1,000 ML INFUS.BAG IV SCH (08:45)
[2018-10-15] MEDS ORDERED: PANTOPRAZOLE SODIUM 40 MG VIAL IVPUSH SCH (10:00)
[2018-10-15] MEDS ORDERED: PIPERACILLIN/TAZOB 3.375 GM 3.375 GM in DEXTROSE 5%-WATER - 50 ML IVPB SCH (10:00)
--- NOTE | 2018-10-15 11:04 | PN ---
Progress Note (short form) - Note Progress Note: Anesthesia postop note 58 y/o F s/p GA for laparoscopic cholecystectomy. POD#1, vss, aaox3, no complaints. No anesthesia complications.
--- NOTE | 2018-10-15 12:26 | PN ---
Progress Note, Physician History of Present Illness: stable doing well no issues - Current Medication List Current Medications: Active Medications Acetaminophen (Tylenol -) 650 mg PO Q6H VALORIE Piperacillin Sod/Tazobactam (Sod 3.375 gm/ Dextrose) 50 mls @ 100 mls/hr IVPB Q8H-IV VALORIE; Protocol Last Admin: 10/15/18 09:06 Dose: 100 mls/hr Ibuprofen (Motrin -) 600 mg PO Q6H VALORIE Last Admin: 10/15/18 09:04 Dose: 600 mg Ondansetron HCl (Zofran Injection) 4 mg IVPB Q6H PRN PRN Reason: NAUSEA AND/OR VOMITING Pantoprazole Sodium (Protonix Iv) 40 mg IVPUSH DAILY VALORIE Last Admin: 10/15/18 09:05 Dose: 40 mg - Objective Vital Signs: Vital Signs Temperature 98.2 F 10/15/18 09:23 Pulse Rate 67 10/15/18 09:23 Respiratory Rate 18 10/15/18 09:23 Blood Pressure 109/60 10/15/18 09:23 O2 Sat by Pulse Oximetry (%) 99 10/15/18 09:00 Constitutional: Yes: No Distress, Calm Cardiovascular: Yes: Regular Rate and Rhythm Respiratory: Yes: Regular, CTA Bilaterally Gastrointestinal: Yes: Normal Bowel Sounds, Soft Musculoskeletal: Yes: WNL Extremities: Yes: WNL Neurological: Yes: Alert, Oriented Psychiatric: Yes: Alert, Oriented Labs: CBC, BMP 10/15/18 06:15 10/15/18 06:15 INR, PTT INR 0.96 (0.83-1.09) 10/12/18 22:20 Assessment/Plan Problem List - Problems (1) Calculus of gallbladder with acute cholecystitis without obstruction Code(s): K80.00 - CALCULUS OF GALLBLADDER W ACUTE CHOLECYST W/O OBSTRUCTION (2) Epigastric pain Code(s): R10.13 - EPIGASTRIC PAIN (3) Nausea & vomiting Code(s): R11.2 - NAUSEA WITH VOMITING, UNSPECIFIED Qualifiers: Vomiting type: unspecified Vomiting Intractability: non-intractable Qualified Code(s): R11.2 - Nausea with vomiting, unspecified (4) Elevated transaminase level Code(s): R74.0 - NONSPEC ELEV OF LEVELS OF TRANSAMNS & LACTIC ACID DEHYDRGNSE plan doing well can stop abx rest as per the team
--- NOTE | 2018-10-15 15:08 | PN ---
Physical Exam: SUBJECTIVE: Patient seen and examined at bedside. POD# 1 lap Cholecystectomy. Passing flatus. OBJECTIVE: Vital Signs Period Temp Pulse Resp BP Sys/Jones Pulse Ox Last 24 Hr 97.2 F-98.4 F 52-67 15-20 103-145/57-76 98-99 GENERAL: Alert and oriented x 3. No acute distress. HEAD: AT/NC EYES: EOMI Sclera clear no scleral icterus appreciated ENT: MMM NECK: Trachea midline, full range of motion, supple. LUNGS: Clear to auscultation b/l HEART: RRR Nl s1s2 ABDOMEN: [place] sign negative. Abdomen remains nondistended and nontender EXTREMITIES: No CCE PSYCH: Normal mood, normal affect. SKIN: Skin moist, no jaundice appreciated Laboratory Results - last 24 hr 10/13/18 10/15/18 10/15/18 16:00 06:15 06:15 WBC 9.1 RBC 4.20 Hgb 12.4 Hct 37.7 MCV 89.7 MCH 29.5 MCHC 32.8 RDW 13.8 Plt Count 151 MPV 12.2 H Sodium 142 Potassium 4.8 Chloride 106 Carbon Dioxide 29 Anion Gap 6 L BUN 7 Creatinine 0.9 Creat Clearance w eGFR > 60 Random Glucose 132 H Calcium 9.9 Total Bilirubin 0.5 Direct Bilirubin 0.2 AST 157 H ALT 496 H Alkaline Phosphatase 91 Total Protein 6.5 Albumin 3.4 Hepatitis A IgM Ab Negative Hep Bs Antigen Negative Hep B Core IgM Ab Negative Hepatitis C Antibody <0.1 Active Medications Generic Name Dose Route Start Last Admin Trade Name Freq PRN Reason Stop Dose Admin Acetaminophen 650 mg 10/15/18 12:00 10/15/18 13:56 Tylenol - PO Not Given Q6H VALORIE Piperacillin Sod/Tazobactam 50 mls @ 100 mls/hr 10/15/18 10:00 10/15/18 09:06 Sod 3.375 gm/ Dextrose IVPB 100 mls/hr Q8H-IV VALORIE Administration Protocol Ibuprofen 600 mg 10/15/18 09:00 10/15/18 09:04 Motrin - PO 600 mg Q6H VALORIE Administration Ondansetron HCl 4 mg 10/15/18 08:45 Zofran Injection IVPB Q6H PRN NAUSEA AND/OR VOMITING Pantoprazole Sodium 40 mg 10/15/18 10:00 10/15/18 09:05 Protonix Iv IVPUSH 40 mg DAILY VALROIE Administration ASSESSMENT/PLAN: Pt is a 58 year old female with no pMHx who presented with a one day h/o epigastric abdominal pain. # Acute Cholecystitis s/p lap Ashwini POD 1 - multiple episode through out the year worsen with fatty food -US abdomen with cholelithiasis. MRCP---> Cholelithiasis but not choledocholithiasis or pancreaticobilliary duct dilation. -ABx completed -Surgery on board- Dr Fernando -Tylenol, Ibuprofen IV for pain -Zofran for Nausea # Hepatic Steatosis -noted on US On us; Triglycerides Total Cholesterol WNL. LDL 103 -G.I f/u outpatient # FEN No Fluids Monitor electrolytes Fat Controlled Diet # DVT ppx SCD's # Dispo DC in AM Visit type - Emergency Visit Emergency Visit: Yes ED Registration Date: 10/13/18 Care time: The patient presented to the Emergency Department on the above date and was hospitalized for further evaluation of their emergent condition. - New Patient This patient is new to me today: No - Critical Care Critical Care patient: No - Discharge Referral Referred to [facility] No
--- NOTE | 2018-10-15 15:27 | PN ---
Progress Note, Physician History of Present Illness: Pt with acute cholecystitis, now s/p lap stanley. LFTs trended down, ambulated, voiding, tolerating diet though lightly still. Seen and examined in bed with daughter and friend at bedside. C/O incisional pain, but better than before surgery. Pain medicine has been helping, denies having had 3pm dose yet. Antibiotics can be stopped, as well as IV fluid. Can get ~1000ml on IS with good effort. No bowel function yet. - Current Medication List Current Medications: Active Medications Acetaminophen (Tylenol -) 650 mg PO Q6H [facility] Last Admin: 10/15/18 13:56 Dose: Not Given Ibuprofen (Motrin -) 600 mg PO Q6H [facility] Last Admin: 10/15/18 09:04 Dose: 600 mg - Objective Vital Signs: Vital Signs Temperature 97.9 F 10/15/18 14:30 Pulse Rate 55 L 10/15/18 14:30 Respiratory Rate 20 10/15/18 14:30 Blood Pressure 116/66 10/15/18 14:30 O2 Sat by Pulse Oximetry (%) 99 10/15/18 09:00 Constitutional: Yes: Well Nourished, No Distress, Calm Eyes: Yes: Conjunctiva Clear, EOM Intact. No: Sclera Icterus HENT: Yes: Atraumatic, Normocephalic Gastrointestinal: Yes: Soft, Distention (mild), Tenderness (incisional and some RUQ, less RLQ; appropriate for postop), Tenderness, Epigastrium (some). No: Tenderness, Rebound Extremities: No: Cool, Cyanosis Integumentary: No: Jaundice, Rash Wound/Incision: Yes: Steri Strips (under dressings), Dressing Dry and Intact (x4 ). No: Dressing Removed Neurological: Yes: Alert, Oriented Labs: CBC, BMP 10/15/18 06:15 10/15/18 06:15 CMP Sodium 142 mmol/L (136-145) 10/15/18 06:15 Potassium 4.8 mmol/L (3.5-5.1) 10/15/18 06:15 Chloride 106 mmol/L (98-107) 10/15/18 06:15 Carbon Dioxide 29 mmol/L (21-32) 10/15/18 06:15 Anion Gap 6 MMOL/L (8-16) L 10/15/18 06:15 BUN 7 mg/dL (7-18) 10/15/18 06:15 Creatinine 0.9 mg/dL (0.55-1.3) 10/15/18 06:15 Creat Clearance w eGFR > 60 (>60) 10/15/18 06:15 Random Glucose 132 mg/dL (74-106) H 10/15/18 06:15 Hemoglobin A1c % 5.9 % (4.2-6.3) 10/14/18 06:30 Calcium 9.9 mg/dL (8.5-10.1) 10/15/18 06:15 Phosphorus 3.2 mg/dL (2.5-4.9) 10/14/18 06:30 Magnesium 2.3 mg/dL (1.8-2.4) 10/14/18 06:30 Total Bilirubin 0.5 mg/dL (0.2-1) 10/15/18 06:15 Direct Bilirubin 0.2 mg/dL (0.0-0.2) 10/15/18 06:15 GGT 275 U/L (5-85) H 10/13/18 02:14 AST 157 U/L (15-37) H 10/15/18 06:15 ALT 496 U/L (13-61) H 10/15/18 06:15 Alkaline Phosphatase 91 U/L (45-117) 10/15/18 06:15 Creatine Kinase 149 U/L (26-192) 10/12/18 22:20 Troponin I < 0.02 ng/ml (0.00-0.05) 10/13/18 08:00 Total Protein 6.5 g/dl (6.4-8.2) 10/15/18 06:15 Albumin 3.4 g/dl (3.4-5.0) 10/15/18 06:15 Triglycerides 95 mg/dL (0-150) 10/14/18 06:30 Cholesterol 185 mg/dL (50-200) 10/14/18 06:30 Total LDL Cholesterol 103 mg/dL (5-100) H 10/14/18 06:30 HDL Cholesterol 66 mg/dL (40-60) H 10/14/18 06:30 Total Amylase 41 U/L (25-115) 10/13/18 08:00 Lipase 111 U/L (73-393) 10/14/18 06:30 LFTs down further Problem List - Problems (1) Calculus of gallbladder with acute cholecystitis without obstruction Assessment/Plan: POD1 s/p laparoscopic cholecystectomy with findings of acute cholecystitis doing well overall tolerating diet, ambulating some, voided but no bowel function yet pain managed with alternating tylenol and ibuprofen completed antibiotics to have pain medicine now, ok for d/c home after dinner and 6p dose of medication should not need Rx for home to call for f/u appt in 2 wks instructions in d/c plan discussed with pt and daughter to remove outer dressings tomorrow, then may shower lifting restrictions for ~4 weeks, then gradual return to normal ok for PT for shoulder outside, just no abdominal core work yet discussed with Dr. Valadez of primary team Code(s): K80.00 - CALCULUS OF GALLBLADDER W ACUTE CHOLECYST W/O OBSTRUCTION (2) Epigastric pain Assessment/Plan: improved, now incisional Code(s): R10.13 - EPIGASTRIC PAIN (3) Nausea & vomiting Assessment/Plan: resolved Code(s): R11.2 - NAUSEA WITH VOMITING, UNSPECIFIED Qualifiers: Vomiting type: unspecified Vomiting Intractability: non-intractable Qualified Code(s): R11.2 - Nausea with vomiting, unspecified (4) Elevated transaminase level Assessment/Plan: resolving Code(s): R74.0 - NONSPEC ELEV OF LEVELS OF TRANSAMNS & LACTIC ACID DEHYDRGNSE
--- NOTE | 2018-10-15 20:57 | PN ---
Teaching Attending Note Name of Resident: Gray Valadez ATTENDING PHYSICIAN STATEMENT I saw and evaluated the patient. I reviewed the resident's note and discussed the case with the resident. I agree with the resident's findings and plan as documented. SUBJECTIVE: Patient is s/p lap.chol. still does not feel well. c/o having abdominal pain. OBJECTIVE: Vital Signs Temperature 98.1 F 10/15/18 18:00 Pulse Rate 59 L 10/15/18 18:00 Respiratory Rate 20 10/15/18 18:00 Blood Pressure 120/68 10/15/18 18:00 O2 Sat by Pulse Oximetry (%) 99 10/15/18 09:00 GENERAL: AAOx3 , mild distress due to pain HEAD: AT/NC EYES: EOMI ,Sclera clear ENT: MMM NECK: supple. LUNGS: CTAB HEART: RRR Nl s1s2 ABDOMEN: soft, lap chol.incision sites are clean EXTREMITIES: No C/C/E PSYCH: Normal mood, normal affect. SKIN: Skin moist, no rash, no lesions noted. CBCD WBC 9.1 K/mm3 (4.0-10.0) 10/15/18 06:15 RBC 4.20 M/mm3 (3.60-5.2) 10/15/18 06:15 Hgb 12.4 GM/dL (10.7-15.3) 10/15/18 06:15 Hct 37.7 % (32.4-45.2) 10/15/18 06:15 MCV 89.7 fl (80-96) 10/15/18 06:15 MCHC 32.8 g/dl (32.0-36.0) 10/15/18 06:15 RDW 13.8 % (11.6-15.6) 10/15/18 06:15 Plt Count 151 K/MM3 (134-434) 10/15/18 06:15 MPV 12.2 fl (7.5-11.1) H 10/15/18 06:15 CMP Sodium 142 mmol/L (136-145) 10/15/18 06:15 Potassium 4.8 mmol/L (3.5-5.1) 10/15/18 06:15 Chloride 106 mmol/L (98-107) 10/15/18 06:15 Carbon Dioxide 29 mmol/L (21-32) 10/15/18 06:15 Anion Gap 6 MMOL/L (8-16) L 10/15/18 06:15 BUN 7 mg/dL (7-18) 10/15/18 06:15 Creatinine 0.9 mg/dL (0.55-1.3) 10/15/18 06:15 Creat Clearance w eGFR > 60 (>60) 10/15/18 06:15 Random Glucose 132 mg/dL (74-106) H 10/15/18 06:15 Calcium 9.9 mg/dL (8.5-10.1) 10/15/18 06:15 Total Bilirubin 0.5 mg/dL (0.2-1) 10/15/18 06:15 AST 157 U/L (15-37) H 10/15/18 06:15 ALT 496 U/L (13-61) H 10/15/18 06:15 Alkaline Phosphatase 91 U/L (45-117) 10/15/18 06:15 Total Protein 6.5 g/dl (6.4-8.2) 10/15/18 06:15 Albumin 3.4 g/dl (3.4-5.0) 10/15/18 06:15 CARDIAC ENZYMES Creatine Kinase 149 U/L (26-192) 10/12/18 22:20 Troponin I < 0.02 ng/ml (0.00-0.05) 10/13/18 08:00 Current Medications Generic Name Dose Route Start Last Admin Trade Name Freq PRN Reason Stop Dose Admin Acetaminophen 650 mg 10/15/18 12:00 10/15/18 18:20 Tylenol - PO 650 mg Q6H VALORIE Administration Ibuprofen 600 mg 10/15/18 09:00 10/15/18 15:31 Motrin - PO 600 mg Q6H VALORIE Administration Home Medications Medication Instructions Recorded Acetaminophen [Tylenol .Regular 650 mg PO Q6H tablet 10/15/18 Strength -] Ibuprofen [Motrin -] 600 mg PO Q6H tablet 10/15/18 ASSESSMENT AND PLAN: 58 y/o lady with h/o cholelithiasis, C section, and R shoulder sx who presented with Abd pain, and was found to have acute Transaminitis # POD#1 s/p Lap stanley. due to acute cholecystitis on IV Zosyn continue # Transaminitis: trending down # GERD sx: on PPI dc in am
[2018-10-16] MEDS: ACETAMINOPHEN 325 MG TABLET (FP) PO SCH ×3 (00:10→12:50)
[2018-10-16] MEDS: IBUPROFEN 600 MG TABLET (FP) PO SCH ×3 (01:54→09:24)
--- NOTE | 2018-10-16 08:34 | PN ---
Teaching Attending Note Name of Resident: Gray Valadez ATTENDING PHYSICIAN STATEMENT I saw and evaluated the patient. I reviewed the resident's note and discussed the case with the resident. I agree with the resident's findings and plan as documented. SUBJECTIVE: Patient is feeling better with no acute distress. OBJECTIVE: Vital Signs Temperature 98.3 F 10/16/18 05:47 Pulse Rate 78 10/16/18 05:47 Respiratory Rate 20 10/16/18 05:47 Blood Pressure 113/59 L 10/16/18 05:47 O2 Sat by Pulse Oximetry (%) 98 10/15/18 21:00 Initial Vital Signs Temp Pulse Resp BP Pulse Ox 97.4 F L 66 16 106/70 100 10/12/18 20:55 10/12/18 20:55 10/12/18 20:55 10/12/18 20:55 10/12/18 20:55 GENERAL: AAOx3 , mild distress due to pain HEAD: AT/NC EYES: EOMI ,Sclera clear ENT: MMM NECK: supple. LUNGS: CTAB HEART: RRR Nl s1s2 ABDOMEN: soft,NT, lap chol.incision sites are clean EXTREMITIES: No C/C/E PSYCH: Normal mood, normal affect. SKIN: Skin moist, no rash, no lesions noted. Current Medications Generic Name Dose Route Start Last Admin Trade Name Holly PRN Reason Stop Dose Admin Acetaminophen 650 mg 10/15/18 12:00 10/16/18 06:26 Tylenol - PO 650 mg Q6H VALORIE Administration Ibuprofen 600 mg 10/15/18 09:00 10/16/18 03:15 Motrin - PO 600 mg Q6H VALORIE Administration Home Medications Medication Instructions Recorded Acetaminophen [Tylenol .Regular 650 mg PO Q6H tablet 10/15/18 Strength -] Ibuprofen [Motrin -] 600 mg PO Q6H tablet 10/15/18 CBCD WBC 9.1 K/mm3 (4.0-10.0) 10/15/18 06:15 RBC 4.20 M/mm3 (3.60-5.2) 10/15/18 06:15 Hgb 12.4 GM/dL (10.7-15.3) 10/15/18 06:15 Hct 37.7 % (32.4-45.2) 10/15/18 06:15 MCV 89.7 fl (80-96) 10/15/18 06:15 MCHC 32.8 g/dl (32.0-36.0) 10/15/18 06:15 RDW 13.8 % (11.6-15.6) 10/15/18 06:15 Plt Count 151 K/MM3 (134-434) 10/15/18 06:15 MPV 12.2 fl (7.5-11.1) H 10/15/18 06:15 CMP Sodium 142 mmol/L (136-145) 10/15/18 06:15 Potassium 4.8 mmol/L (3.5-5.1) 10/15/18 06:15 Chloride 106 mmol/L (98-107) 10/15/18 06:15 Carbon Dioxide 29 mmol/L (21-32) 10/15/18 06:15 Anion Gap 6 MMOL/L (8-16) L 10/15/18 06:15 BUN 7 mg/dL (7-18) 10/15/18 06:15 Creatinine 0.9 mg/dL (0.55-1.3) 10/15/18 06:15 Creat Clearance w eGFR > 60 (>60) 10/15/18 06:15 Random Glucose 132 mg/dL (74-106) H 10/15/18 06:15 Calcium 9.9 mg/dL (8.5-10.1) 10/15/18 06:15 Total Bilirubin 0.5 mg/dL (0.2-1) 10/15/18 06:15 AST 157 U/L (15-37) H 10/15/18 06:15 ALT 496 U/L (13-61) H 10/15/18 06:15 Alkaline Phosphatase 91 U/L (45-117) 10/15/18 06:15 Total Protein 6.5 g/dl (6.4-8.2) 10/15/18 06:15 Albumin 3.4 g/dl (3.4-5.0) 10/15/18 06:15 CARDIAC ENZYMES Creatine Kinase 149 U/L (26-192) 10/12/18 22:20 Troponin I < 0.02 ng/ml (0.00-0.05) 10/13/18 08:00 ASSESSMENT AND PLAN: 58 y/o lady with h/o cholelithiasis, C section, and R shoulder sx who presented with Abd pain, and was found to have acute Transaminitis # POD#2 s/p Lap stanley. due to acute cholecystitis due to gall stones with no obstruction s/p IV Zosyn # Transaminitis: trending down # GERD sx: on PPI discharge patient home.
[2018-10-16 09:09] VITALS: BP 134/78; PULSE 56; TEMP 99
--- NOTE | 2018-10-16 13:14 | DS ---
Physical Exam: SUBJECTIVE: Patient seen and examined at bedside. POD#2. OBJECTIVE: Vital Signs Period Temp Pulse Resp BP Sys/Jones Pulse Ox Last 24 Hr 97.1 F-99.0 F 55-78 17-20 105-134/54-78 96-98 PHYSICAL EXAM GENERAL: NAD HEAD: AT/NC EYES: EOMI Sclera clear ENT: MMM NECK: Trachea midline, full range of motion, supple. LUNGS: Clear to auscultation b/l HEART: RRR Nl s1s2 ABDOMEN: Surgical bandages in place. Nonoozing. Soft Nondistended EXTREMITIES: No CCE PSYCH: Normal mood, normal affect. 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 Pt underwent imaging of her gallbladder with U/S and CTAP. U/s revealed gall bladder distention and borderline wall thickening. CTAP revealed cholelithiasis with minimal pericholecystic fluid. No choledocholithiasis or pancreaticobilliary dilation. Pt was started on Levaquin and flagyl which was ultimately switched to Ceftriaxone and Flagyl and then Zosyn. Pt's AST/ALT were 1231/997 at their peak. LFT's began to trend downwards the following day and an ERCP was deferred. Pt was subsequently scheduled for a lap stanley with Dr Fernando. Pt's op course was unremarkable. Date of Discharge: 10/16/18 Minutes to complete discharge: 35 Discharge Summary Reason For Visit: CHOLELITHIASIS Current Active Problems Calculus of gallbladder with acute cholecystitis without obstruction (Acute) Cholelithiasis (Acute) DVT prophylaxis (Acute) Condition: Stable - Instructions Diet, Activity, Other Instructions: You were hospitalized for due to your abdominal pain found to have gallstones. You were seen by Dr. Fernando and had your gallbladder removed. You are tolerating food and are stable to go home. Postoperative instructions: You had a laparoscopic cholecystectomy on 10/14/[address] Glenn Fernando of [facility]. Activity: Resume your usual activities gradually, but no heavy exertion or lifting more than 10-15 pounds for 1 month. Remove dressings 48 hours after surgery (Friday at home); sticky tapes underneath will fall off by themselves. You may shower daily starting then, just pat the incision areas dry. No bath or swimming until skin incisions have healed. Eat lightly at first, but advance to your usual diet as tolerated. Pain: For pain, you may use and alternate Tylenol (acetaminophen) 1-2 pills and/ or ibuprofen 200 mg (1-3 pills) every 6 hours each as needed; this means that you can take one OR the other at 3-hour intervals. Do not take more than 4000mg of acetaminophen in a day. Take medications as prescribed or indicated on the labeling. Reduce the amount of medication you use as your pain level improves, until you only take it when you need it. Follow-up: Call Dr. Fernando's office at [phone] to make your postop appointment (approximately 2 weeks after surgery). Clinic is held in the Diagnostic Center on the first floor of [facility] or on the 5th floor ([facility]) in the [facility]. Call the office if you have: * increasing pain not responsive to pain medication * fever of 101F or higher * vomiting * unusual or increasing bleeding or drainage from wounds * increasing redness or swelling at wound sites Resume taking any of your regular home medications as before. Also, see your primary medical doctor within 1-2 weeks. It is ok to do physical therapy for your right shoulder, but avoid abdominal/ core exercises for now. You will be able to gradually go back to using your abdominal muscles in about a month. Please return to the emergency room immediately if you begin to experience chest pain, shortness of breath, nausea/vomiting, fever or any other similar symptoms. Referrals: Glenn Fernando MD [Staff Physician] - 1 Week Binh Jama MD [Primary Care Provider] - Disposition: HOME - Home Medications Comprehensive Discharge Medication List: Ambulatory Orders Acetaminophen [Tylenol .Regular Strength -] 650 mg PO Q6H tablet 10/15/18 Ibuprofen [Motrin -] 600 mg PO Q6H tablet 10/15/18 This patient is new to me today: No Emergency Visit: Yes ED Registration Date: 10/13/18 Care time: The patient presented to the Emergency Department on the above date and was hospitalized for further evaluation of their emergent condition. Critical Care patient: No - Discharge Referral Referred to [facility] No
--- NOTE | 2018-10-16 13:17 | PN ---
Progress Note, Physician History of Present Illness: post op doing well still abd pain at the operated umbilicus site - Current Medication List Current Medications: Active Medications Acetaminophen (Tylenol -) 650 mg PO Q6H [facility] Last Admin: 10/16/18 12:50 Dose: 650 mg Ibuprofen (Motrin -) 600 mg PO Q6H [facility] Last Admin: 10/16/18 09:24 Dose: 600 mg - Objective Vital Signs: Vital Signs Temperature 99.0 F 10/16/18 09:06 Pulse Rate 56 L 10/16/18 09:06 Respiratory Rate 17 10/16/18 09:06 Blood Pressure 134/78 10/16/18 09:06 O2 Sat by Pulse Oximetry (%) 96 10/16/18 09:00 Constitutional: Yes: No Distress, Calm Cardiovascular: Yes: Regular Rate and Rhythm Respiratory: Yes: Regular, CTA Bilaterally Gastrointestinal: Yes: Normal Bowel Sounds, Soft Musculoskeletal: Yes: WNL Extremities: Yes: Other Wound/Incision: Yes: Clean/Dry, Steri Strips Neurological: Yes: Alert, Oriented Psychiatric: Yes: Alert, Oriented Labs: CBC, BMP 10/15/18 06:15 10/15/18 06:15 INR, PTT INR 0.96 (0.83-1.09) 10/12/18 22:20 Assessment/Plan Problem List - Problems (1) Calculus of gallbladder with acute cholecystitis without obstruction Code(s): K80.00 - CALCULUS OF GALLBLADDER W ACUTE CHOLECYST W/O OBSTRUCTION (2) Epigastric pain Code(s): R10.13 - EPIGASTRIC PAIN (3) Nausea & vomiting Code(s): R11.2 - NAUSEA WITH VOMITING, UNSPECIFIED Qualifiers: Vomiting type: unspecified Vomiting Intractability: non-intractable Qualified Code(s): R11.2 - Nausea with vomiting, unspecified (4) Elevated transaminase level Code(s): R74.0 - NONSPEC ELEV OF LEVELS OF TRANSAMNS & LACTIC ACID DEHYDRGNSE plan doing well no abx hold the abd while coughing rest as per the team
--- NOTE | 2018-10-16 17:35 | PATH ---
Surgical Pathology Report Patient Name: JOAQUÍN RAMIREZ [facility]. Rec. #: [id number] /Age/Gender: 1960 (Age: 58) / F Account: [id number] Location: [facility] MED/SURG Taken: 10/14/2018 Received: 10/15/2018 Reported: 10/16/2018 Physicians: Glenn Fernando M.D. Specimen(s) Received GALLBLADDER Clinical History Acute cholecystitis Final Diagnosis GALLBLADDER, LAPAROSCOPIC CHOLECYSTECTOMY: CHRONIC CHOLECYSTITIS WITH CHOLELITHIASIS. Electronically Signed Rafaela Martinez M.D. Gross Description Received in formalin, labeled "gallbladder," is a 7.5 x 3.7 x 3.5 cm. gallbladder with a 0.2 cm. in length portion of cystic duct attached. The outer surface is veloz green and varies from smooth to shaggy. The lumen contains green, tenacious bile as well as abundant yellow, irregular choleliths ranging from 0.1-1.7 cm in greatest dimension. The mucosa is dark green and velvety. The wall of the gallbladder measures 0.1 cm. in thickness. [employer] sections are submitted in one cassette. 10/15/201810/15/2018
== END 2018-10-16 13:56 | disposition home or self-care (01) | DRG 263 ==
LOC: JER 20:36 → JERBED 10-13 01:35 → J7W 10-13 06:34 → OBSVTOIN 10-13 14:49
PROVIDERS: ADMIT Internal Medicine; ATTEND Internal Medicine
PROC: 0FT44ZZ Resection of Gallbladder, Percutaneous Endoscopic Approach (ICD-10-PCS; principal; 2018-10-14 14:30)
DX: K80.01 Calculus of gallbladder with acute cholecystitis with obstruction (principal); K76.0 Fatty (change of) liver, not elsewhere classified; R74.0 Nonspecific elevation of levels of transaminase and lactic acid dehydrogenase [LDH]; K21.9 Gastro-esophageal reflux disease without esophagitis; K59.00 Constipation, unspecified; F17.210 Nicotine dependence, cigarettes, uncomplicated; K66.0 Peritoneal adhesions (postprocedural) (postinfection)
CPT/HCPCS: 36415; 74181-TC; 76705-TC; 80048; 80053; 80061; 80074; 80076; 82150; 82550; 82977; 83036; 83516; 83690; 83721; 83735; 84100; 84484; 85025; 85027; 85610; 85651; 85730; 86038; 86850; 86900; 86901; 88304-TC; 93005; 93010; 94760; 99282-25; G0378; J0131; J7030

== ENCOUNTER 2020-06-19 05:10 | Day surgery (SDC) | payer OTHER ==
[2020-06-16 08:59] VITALS: BMI 27.1
[2020-06-19] MEDS ORDERED: MIDAZOLAM HCL 2 MG/2 ML SINGLE DOSE VIAL ONE ×2 (13:59)
[2020-06-19 16:51] VITALS: BP 109/69; PULSE 58; TEMP 96.2
== END 2020-06-19 17:15 | disposition home or self-care (01) ==
LOC: JASU-SURG 05:10
PROVIDERS: ATTEND Urology
PROC: 0TF3XZZ Fragmentation in Right Kidney Pelvis, External Approach (ICD-10-PCS; principal; 2020-06-19 12:30)
DX: N20.0 Calculus of kidney (principal)

== ENCOUNTER 2024-06-14 05:06 | Day surgery (SDC) | payer MEDICARE ==
[2024-06-14 07:26] VITALS: BMI 28.3
[2024-06-14] MEDS ORDERED: KETAMINE HCL 200 MG/20 ML VIAL ONE (09:14)
[2024-06-14] MEDS ORDERED: MIDAZOLAM HCL 2 MG/2 ML SINGLE DOSE VIAL ONE (09:14)
[2024-06-14] MEDS ORDERED: PROPOFOL 20 ML ONE (09:17)
[2024-06-14 11:02] VITALS: BP 130/70; PULSE 60; RESP 20; TEMP 97.7
== END 2024-06-14 11:15 | disposition home or self-care (01) ==
LOC: JASU-SURG 05:06
PROVIDERS: ATTEND Urology
PROC: 0TF3XZZ Fragmentation in Right Kidney Pelvis, External Approach (ICD-10-PCS; principal; 2024-06-14 09:20)
DX: N20.0 Calculus of kidney (principal)